=== PATIENT | female | born 1955 | race Hispanic/Latino ===

== ENCOUNTER 2016-09-17 08:25 | Inpatient (IN) | payer MEDICARE, MEDICAID ==
[2016-09-17] MEDS ORDERED: Morphine 4 mg/ml ISec IVP STA (08:51)
--- NOTE | 2016-09-17 08:52 | ED PDOC ---
Arrival/HPI - General Chief Complaint: Shortness Of Breath Time Seen by Provider: 09/17/16 08:26 Historian: Patient - History of Present Illness Narrative History of Present Illness (Text): 09/17/16 08:30 Patient is a 60 year old female whose past medical history includes Asthma, COPD , and cardiomyopathy, who presents to the emergency department complaining of sudden onset of shortness of breath since 03:00 this morning. She states she felt fine when going to bed. Patient reports associated chills and left sided chest pain worse with cough. Time/Duration: 4-6 hours Symptom Onset: Sudden Symptom Course: Unchanged Modifying Factors (Text): None Past Medical History - Provider Review Nursing Documentation Reviewed: Yes - Infectious Disease Hx of Infectious Diseases: None - Tetanus Immunization Tetanus Immunization: Unknown - Cardiac Hx Cardiac Disorders: Yes Hx Hypertension: Yes Hx Pacemaker: Yes Other/Comment: Defib - Pulmonary Hx Asthma: Yes Hx Chronic Obstructive Pulmonary Disease (COPD): Yes Hx Emphysema: Yes - Neurological Hx Neurological Disorder: Yes - HEENT Hx HEENT Disorder: No - Renal Hx Renal Disorder: No Other/Comment: nodules on kidney - Endocrine/Metabolic Hx Endocrine Disorders: Yes Other/Comment: DM "diet controlled" - Hematological/Oncological Hx Blood Disorders: No - Integumentary Hx Dermatological Disorder: Yes Other/Comment: 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 [id number] - Musculoskeletal/Rheumatological Hx Musculoskeletal Disorders: No Hx Falls: No - Gastrointestinal Hx Gastrointestinal Disorders: No - Genitourinary/Gynecological Hx Genitourinary Disorders: No - Psychiatric Hx Psychophysiologic Disorder: No Hx Substance Use: No - Surgical History Hx Gastric Bypass Surgery: Yes (sleeve) Hx Hysterectomy: Yes Hx Orthopedic Surgery: Yes (neck, knees carpal tunnel) Other/Comment: Pacemaker/Defib - Anesthesia Hx Anesthesia: Yes Hx Anesthesia Reactions: No Hx Malignant Hyperthermia: No - Suicidal Assessment Feels Threatened In Home Enviroment: No Family/Social History - Physician Review Nursing Documentation Reviewed: Yes Family/Social History: Unknown Family HX Smoking Status: Former Smoker Hx Alcohol Use: No Hx Substance Use: No Hx Substance Use Treatment: No Allergies/Home Meds Allergies/Adverse Reactions: Allergies adhesive Allergy (Mild, Verified 09/17/16 08:37) RASH latex Allergy (Mild, Verified 09/17/16 08:37) RASH levofloxacin Allergy (Mild, Verified 09/17/16 08:37) RASH Home Medications: Home Meds Medication Instructions Recorded Confirmed Acetaminophen/Oxycodone Hydr 1 tab PO Q6 MDD 10/325 tab 04/20/15 09/17/16 [Percocet 2.5/325 mg Tab] Carvedilol [Coreg] 25 mg PO .1-2 TIMES PERDAY 04/20/15 09/17/16 Zolpidem Tartrate [Zolpidem 10 mg PO HS 04/20/15 09/17/16 Tartrate] Albuterol HFA [Ventolin HFA 90 1 inh INH PRN PRN 09/17/16 09/17/16 mcg/actuation (8 g)] Aspirin [Aspirin Chewable] 81 mg PO DAILY 09/17/16 09/17/16 Calcium Carb/Vitamin D3/Vit K1 1 tab PO .1-2 TIMESPERDAY 09/17/16 09/17/16 [Calcium + D Soft Chewable Tab] Celecoxib [celeBREX] 200 mg PO DAILY 09/17/16 09/17/16 Dexlansoprazole [Dexilant] 60 mg PO DAILY 09/17/16 09/17/16 Diclofenac Sodium [Voltaren] 1 appful TOP QID 09/17/16 09/17/16 Epinephrine [Epipen] 0.3 mg IJ PRN PRN 09/17/16 09/17/16 Ergocalciferol (Vitamin D2) 50,000 units PO .ONCE PER WEEK 09/17/16 09/17/16 [Vitamin D] Folic Acid [Folic Acid] 1,000 mcg PO DAILY 09/17/16 09/17/16 Gabapentin [Neurontin] 300 mg PO .1-3TIMES/DAY 09/17/16 09/17/16 Ibuprofen [Motrin Tab] 800 mg PO .1-3TIMES PERDAY PRN 09/17/16 09/17/16 Lisinopril [Zestril] 25 mg PO DAILY 09/17/16 09/17/16 Naproxen [Naprosyn Tab] 1 tab PO .1-2 TIMES PER DAY PRN 09/17/16 09/17/16 Oxycodone HCl [Oxycontin] 15 mg PO TID 09/17/16 09/17/16 Tizanidine HCl [Tizanidine HCl] 4 mg PO HS 09/17/16 09/17/16 Review of Systems - Review of Systems Constitutional: Fatigue, Fevers, Other (Chills) Eyes: absent: Vision Changes, Photophobia ENT: absent: Hearing Changes, Tinnitus Respiratory: SOB, Cough. absent: Sputum, Wheezing Cardiovascular: Chest Pain, GOMEZ. absent: Edema, Calf Pain Gastrointestinal: absent: Abdominal Pain, Nausea, Vomiting Genitourinary Female: absent: Dysuria, Frequency, Hematuria Musculoskeletal: Back Pain. absent: Neck Pain Skin: absent: Rash, Pruritis Neurological: absent: Headache, Dizziness, Focal Weakness Endocrine: absent: Polyuria Hemo/Lymphatic: absent: Easy Bleeding Psychiatric: absent: Depression Physical Exam - Physical Exam Narrative Physical Exam (Text): Head: Atraumatic. Normocephalic. Eyes: PERRL. EOMI. Conjunctivae are not pale. ENT: Mucous membranes are moist and intact. Oropharynx is clear and symmetric. Neck: Supple. Full ROM. No JVD. No lymphadenopathy. Cardiovascular: Regular rate. Regular rhythm. Systolic murmur.. Distal pulses are 2+ and symmetric. Pulmonary/Chest: Tachypneic. Bilateral wheezing. Rhonchi left lung. Mild respiratory distress initially. Abdominal: Soft and non-distended. There is no tenderness. No rebound, guarding, or rigidity. No organomegaly. Good bowel sounds. Back: No CVA tenderness. Left sided paraspinal tenderness, no erythema or edema or midline spinal tenderness. Extremities: Bilateral lower extremity edema. No cyanosis. No clubbing. Full range of motion in all extremities. No calf tenderness. Abrasion to forearm, no pus or streaking or drainage or active bleeding. Skin: Skin is warm and dry. No petechiae. No purpura. Neurological: Alert, awake, and oriented to person, place, time, and situation. Normal speech. Motor and sensory intact. Psychiatric: Good eye contact. Normal interaction, affect, and behavior. Vital Signs Reviewed: Yes Vital Signs Temp Pulse Pulse Resp BP Pulse Ox 09/17/16 12:54 100.5 F H 90 90 20 126/58 L 09/17/16 11:00 95 H 18 99/55 L 98 09/17/16 08:45 100.5 F H 90 20 126/58 L 98 09/17/16 08:38 21 Blood Pressure: Normal Pulse: Regular Respiratory Rate: Tachypneic Appearance: Positive for: Non-Toxic, Uncomfortable Pain Distress: Moderate Mental Status: Positive for: Alert and Oriented X 3 Medical Decision Making ED Course and Treatment: Differential Diagnosis include but are not limited to: pneumonia, chf, cad, doubt PE Plan: Will obtain Chest X-ray, EKG, and give nebulizer treatments. Patient states she is allergic to steroids. Progress Notes: Patient received multiple nebulizers as well as Magnesium iv prior to arrival. On initial exam, diffuse wheezing noted with PALPABLE left sided pain on exam. Chest xray abnormal and suggestive of pneumonia. Patient with fever in ED, tylenol given. Lactate on ABG unremarkable. Chest X-ray Solar System Designer : Lauren Ordoñez MD Report Date : 09/17/2016 09:45:24 IMPRESSION: Left lingular and lower lobe pneumonia. Follow-up after medical management is recommended to ensure resolution and exclude underlying mass. 09/17/16 09:41 IV Morphine given with improvement in back pain, which I feel is secondary to a chronic back pain but also compounded by her chest xray findings. After multiple nebulizers, less tachypneic, sats 99% on 2 liters nasal cannula. Patient with low WBC. I have consulted infectious disease, iv antibiotics initiated. Currently nontoxic appearing with no meningeal signs. Abnormal labs and chest xray findings reviewed with patient as well as treatment plan. Case discussed with Dr. Miller who accepts for admission. - Lab Interpretations Lab Results: 09/17/16 09:00 09/17/16 09:00 Lab Results 09/17/16 09:00: PT 10.3, INR 0.95, APTT 21.7 L 09/17/16 09:00: WBC 1.3 L* D, RBC 4.15, Hgb 13.7, Hct 40.5, MCV 97.6, MCH 33.0, MCHC 33.8, RDW 12.7, Plt Count 169, MPV 10.1, Neutrophils % (Manual) 40 L, Band Neutrophils % 15 H*, Lymphocytes % (Manual) 42 H, Monocytes % (Manual) 3, Platelet Evaluation Normal 09/17/16 09:00: Sodium 140, Chloride 102, Potassium 3.4 L, Carbon Dioxide 27, Anion Gap 14, BUN 19, Creatinine 0.6, Est GFR ( Amer) > 60, Est GFR (Non- Af Amer) > 60, Random Glucose 93, Calcium 9.7, Magnesium 2.5 H, Total Bilirubin 1.3, AST 19, ALT 20, Alkaline Phosphatase 100, Lactate Dehydrogenase 505, Total Creatine Kinase 51, Troponin I < 0.01 D, NT-Pro-B Natriuret Pep 98.9, Total Protein 6.7, Albumin 3.9, Globulin 2.8, Albumin/Globulin Ratio 1.4 09/17/16 09:00: pCO2 24 L, pO2 63.0 L, HCO3 25.2, ABG pH 7.63 H*, ABG Total CO2 25.9, ABG O2 Saturation 96.8, ABG Base Excess 5.1 H, ABG Potassium 2.8 L, Sodium 140.0, Chloride 107.0, Glucose 96, Lactate 1.5, FiO2 21.0, Arterial Blood Potassium 2.8 L 09/17/16 08:55: Influenza Typ A,B (EIA) Negative for flu a/b 09/17/16 08:40: pO2 26 L, VBG pH 7.51 H, VBG pCO2 38.0 L, VBG HCO3 30.3 H, VBG Total CO2 31.5 H, VBG O2 Sat (Calc) 58.1, VBG Base Excess 6.9 H, VBG Potassium 3.3 L, Sodium 141.0, Chloride 103.0, Glucose 96, Lactate 2.4 H, FiO2 21.0, Venous Blood Potassium 3.3 L - RAD Interpretation Radiology Orders: 09/17/16 08:50 CHEST PORTABLE [RAD] Stat - EKG Interpretation EKG Interpretation (Text): 09/17/16 16:36 EKG at 0837 normal sinus rhythm with no acute st elevations Interpreted by ED Physician: Yes Type: 12 lead EKG - Medication Orders Current Medication Orders: Atorvastatin Calcium (Lipitor) 40 mg PO DAILY [facility] Last Admin: 09/17/16 13:16 Dose: Not Given Non-Admin Reason: Patient Refused Carvedilol (Coreg) 6.25 mg PO DAILY [facility] Last Admin: 09/17/16 13:16 Dose: 6.25 mg Dipyridamole/Aspirin (Aggrenox 25-200 Mg) 1 ea PO BID [facility] Last Admin: 09/17/16 13:16 Dose: 1 ea Doxycycline Hyclate (Doryx) 100 mg PO Q12 [facility] PRN Reason: Protocol Stop: 09/26/16 22:01 Escitalopram Oxalate (Lexapro) 10 mg PO DAILY [facility] Last Admin: 09/17/16 13:16 Dose: 10 mg Gabapentin (Neurontin) 300 mg PO TID [facility] PRN Reason: Protocol Meropenem 1g/NS 100mL IVPB (Meropenem 1g/Ns 100ml Ivpb) 1 gm in 100 mls @ 100 mls/hr IVPB Q8 [facility]ARA PRN Reason: Protocol Stop: 09/26/16 14:01 Last Admin: 09/17/16 13:16 Dose: 100 mls/hr Vancomycin HCl (Vancomycin 1gm) 1 gm in 250 mls @ 167 mls/hr IVPB Q12H [facility] PRN Reason: Protocol Stop: 09/26/16 10:46 Last Admin: 09/17/16 12:44 Dose: 167 mls/hr Levalbuterol HCl (Xopenex) 1.25 mg IH [id number] [facility] Last Admin: 09/17/16 14:20 Dose: 1.25 mg Montelukast Sodium (Singulair) 10 mg PO DAILY [facility] Last Admin: 09/17/16 13:16 Dose: 10 mg Oxycodone HCl (Oxycontin Extended Release Tab) 15 mg PO TID [facility] Stop: 09/20/16 18:01 Pregabalin (Lyrica) 100 mg PO BID [facility] Last Admin: 09/17/16 13:16 Dose: 100 mg Topiramate (Topamax) 50 mg PO BID [facility] PRN Reason: Protocol Zolpidem Tartrate (Ambien) 5 mg PO HS PRN; Protocol PRN Reason: Insomnia Discontinued Medications Acetaminophen (Tylenol 325mg Tab) 650 mg PO ONCE STA Stop: 09/17/16 08:53 Last Admin: 09/17/16 09:03 Dose: 650 mg Re-Assess: MAR Pain/Vitals Document 09/17/16 10:03 HD (Rec: 09/17/16 11:44 HD [id number]) Pain Reassessment Is This A Pain ReAssessment? Yes Sleep Is patient sleeping during reassessment? No Presence of Pain Presence of Pain No Albuterol/Ipratropium (Duoneb 3 Mg/0.5 Mg (3 Ml) Ud) 3 ml IH Q15M [facility] Stop: 09/17/16 09:31 Last Admin: 09/17/16 09:41 Dose: Not Given Non-Admin Reason: Patient Refused Ceftriaxone Sodium (Rocephin 1 Gram Ivpb) 1 gm in 100 mls @ 200 mls/hr IVPB ONCE STA PRN Reason: Protocol Stop: 09/17/16 09:46 Last Admin: 09/17/16 09:41 Dose: 200 mls/hr Morphine Sulfate (Morphine) 4 mg IVP STAT STA Stop: 09/17/16 08:52 Last Admin: 09/17/16 09:03 Dose: 4 mg Re-Assess: MARLON Pain Assessment Document 09/17/16 10:03 HD (Rec: 09/17/16 11:44 HD [id number]) Pain Reassessment Is this a pain reassessment? Yes Sleep Is patient sleeping during reassessment? No Presence of Pain Presence of Pain No Pneumococcal Polyvalent Vaccine (Pneumovax 23 Vaccine) 0.5 ml IM .ONCE ONE Stop: 09/17/16 13:42 Last Admin: 09/17/16 13:44 Dose: - Scribe Statement The provider has reviewed the documentation as recorded by the Renetta Cabrera Provider Scribe Attestation: All medical record entries made by the Renetta were at my direction and personally dictated by me. I have reviewed the chart and agree that the record accurately reflects my personal performance of the history, physical exam, medical decision making, and the department course for this patient. I have also personally directed, reviewed, and agree with the discharge instructions and disposition. Disposition/Present on Arrival - Present on Arrival Any Indicators Present on Arrival: No History of DVT/PE: No History of Uncontrolled Diabetes: No Urinary Catheter: No History of Decub. Ulcer: No History Surgical Site Infection Following: None - Disposition Have Diagnosis and Disposition been Completed?: Yes Diagnosis: Pneumonia, Dyspnea, Leukopenia Disposition: HOSPITALIZED Disposition Time: 10:00 Patient Plan: Admission, Telemetry Condition: SERIOUS
[2016-09-17] MEDS: Albuterol-Ipratrop 3 mg / 0.5 (3 ml) UD IH SCH ×3 (09:03→09:41)
[2016-09-17 09:14] LABS: ARTERIAL BLOOD GAS HCO3 25.2 mmol/L (21-28)
[2016-09-17] MEDS ORDERED: cefTRIAXone 1 gm 1 GM/100 ML BAG IVPB STA (09:17)
[2016-09-17] MEDS ORDERED: Azithromycin 500MG/NS 250ml 500 MG/250 ML BAG IVPB STA (09:17)
[2016-09-17 09:18] LABS: ARTERIAL BLOOD GAS PH 7.63 (7.35-7.45)
[2016-09-17 09:25] LABS: HEMATOCRIT 40.5 % (36.0-48.0); MEAN CELL VOLUME 97.6 fL (80.0-105.0); MEAN CORPUSCULAR HGB CONC 33.8 g/dl (31.0-37.0); MEAN PLATELET VOLUME 10.1 fl (7.0-11.0); PLATELET COUNT 169 10^3/uL (120.0-450.0); RED CELL DISTRIBUTION WIDTH 12.7 % (11.5-14.5)
[2016-09-17 09:26] LABS: ADD MANUAL DIFF? YES
[2016-09-17 09:28] LABS: WHITE BLOOD COUNT 1.3 10^3/ul (4.5-11.0)
[2016-09-17 09:29] LABS: VENOUS BLOOD GAS BASE EXCESS 6.9 mmol/L (0.0-2.0); VENOUS BLOOD PH 7.51 (7.32-7.43)
[2016-09-17 09:34] LABS: ALB/GLOB RATIO 1.4 (1.1-1.8); ALKALINE PHOSPHATASE 100 U/L (38-133); ALT/SGPT 20 U/L (7-56); AST/SGOT 19 U/L (15-39); BILIRUBIN,TOTAL 1.3 mg/dL (0.2-1.3); BLOOD UREA NITROGEN 19 mg/dL (7-21); CALCIUM 9.7 mg/dL (8.4-10.5); CARBON DIOXIDE 27 mmol/L (21-33); CHLORIDE 102 mmol/L (98-107); GFR AFRICAN-AMERICAN > 60; GLUCOSE,RANDOM 93 mg/dL (70-110); INR 0.95 (0.93-1.08); MAGNESIUM 2.5 mg/dL (1.7-2.2); PARTIAL THROMBOPLASTIN TIME 21.7 Seconds (23.7-30.8); POTASSIUM 3.4 mmol/L (3.6-5.0); SODIUM 140 mmol/L (132-148); TOTAL PROTEIN 6.7 g/dL (5.8-8.3)
--- NOTE | 2016-09-17 09:47 | RAD ---
HISTORY: Shortness of breath COMPARISON: 08/28/2015. FINDINGS: LUNGS: There is consolidation in the lingula and left lower lobe. The right lung is clear. PLEURA: Suspect small left pleural effusion. No significant right pleural effusion identified, no pneumothorax apparent. CARDIOVASCULAR: Normal. There is stable position of a left-sided transvenous permanent pacing device. OSSEOUS STRUCTURES: No significant abnormalities. VISUALIZED UPPER ABDOMEN: Normal. OTHER FINDINGS: None. IMPRESSION: Left lingular and lower lobe pneumonia. Follow-up after medical management is recommended to ensure resolution and exclude underlying mass.
--- NOTE | 2016-09-17 09:49 | CARD ---
APPROVED REPORT EKG Measurement Heart [id number] <Conclusion> Sinus rhythm with fusion complexes Otherwise normal ECG
[2016-09-17 09:58] LABS: TROPONIN I < 0.01 ng/mL
[2016-09-17 10:02] LABS: BAND 15 % (0-2); NEUTROPHIL 40 % (50.0-70.0); PLATELET ESTIMATE NORMAL (NORMAL)
[2016-09-17 11:41] LABS: URINE BILIRUBIN NEGATIVE (NEGATIVE); URINE BLOOD NEGATIVE (NEGATIVE); URINE GLUCOSE (UA) NEGATIVE (NEGATIVE); URINE KETONE NEGATIVE (NEGATIVE); URINE LEUKOCYTE ESTERASE SMALL Leu/uL (NEGATIVE); URINE PROTEIN NEGATIVE mg/dL (<30 mg/dL)
[2016-09-17 11:45] LABS: URINE APPEARANCE TURBID (CLEAR); URINE COLOR YELLOW (YELLOW)
[2016-09-17 11:47] LABS: URINE BACTERIA MANY (NEG); URINE RBC NEGATIVE /hpf (0-2)
[2016-09-17] MEDS: Vancomycin 1gm in NS 250ml 1 GM/250 ML BAG IVPB SCH ×2 (12:44→23:43)
[2016-09-17] MEDS: Aspirin-Dipyridamole 200-25 mg ER Cap PO SCH ×2 (13:16→17:04)
[2016-09-17] MEDS: Meropenem 1g/NS 100mL IVPB 1 GM/100 ML PIGGYBACK IVPB SCH ×2 (13:16→22:40)
[2016-09-17 13:41] VITALS: BMI 22.4
[2016-09-17] MEDS ORDERED: Pneumococcal 23-Valent Vaccine IM ONE (13:41)
[2016-09-17] MEDS: Levalbuterol 1.25 MG/3 ML Inhal Soln UD IH SCH ×2 (14:20→19:57)
[2016-09-17] MEDS: oxyCODONE 15 mg Immediate Release Tab PO PRN (20:04)
--- NOTE | 2016-09-17 20:44 | CP.PCM.CON ---
History of Present Illness - History of Present Illness History of Present Illness: COPD DJD CMP CHF DM PER NEUROPATHY Review of Systems - Review of Systems Systems not reviewed;Unavailable: Acuity of Condition, Unstable Vital Signs, Respiratory Distress, Dementia, Altered Mental Status, Intoxicated, Uncooperative, Psychotic, Intubated, Language Barrier, Other - Constitutional Constitutional: As Per HPI, Anorexia, Chills, Daytime Sleepiness, Excessive Sweating, Fatigue, Fever, Frequent Falls, Headache, Increased Appetite, Lethargy , Malaise, Night Sweats, Snoring, Sleep Apnea, Weight Gain, Weight Loss, Weakness, Other - EENT Ears: absent: As Per HPI, Decreased Hearing, Ear Discharge, Ear Pain, Tinnitus, Abnormal Hearing, Disequilibrium, Dizziness, Other Nose/Mouth/Throat: absent: As Per HPI, Epistaxis, Nasal Congestion, Nasal Discharge, Nasal Obstruction, Nasal Trauma, Nose Pain, Post Nasal Drip, Sinus Pain, Sinus Pressure, Bleeding Gums, Change in Voice, Dental Pain, Dry Mouth, Dysphagia, Halitosis, Hoarsness, Lip Swelling, Mouth Lesions, Mouth Pain, Odynophagia, Sore Throat, Throat Swelling, Tongue Swelling, Facial Pain, Neck Pain, Neck Mass, Other - Breasts Breasts: As Per HPI, Change in Shape, Mass, Pain, Nipple Discharge, Nipple Inversion, Skin Changes, Swelling, Other - Cardiovascular Cardiovascular: absent: As Per HPI, Acrocyanosis, Chest Pain, Chest Pain at Rest , Chest Pain with Activity, Claudication, Diaphoresis, Dyspnea, Dyspnea on Exertion, Edema, Irregular Heart Rhythm, Pain Radiating to Arm/Neck/Jaw, Leg Edema, Leg Ulcers, Lightheadedness, Orthopnea, Palpitations, Paroxysmal Nocturnal Dyspnea, Pedal Edema, Radiating Pain, Rapid Heart Rate, Slow Heart Rate, Syncope, Other Past Patient History - Infectious Disease Hx of Infectious Diseases: None - Tetanus Immunizations Tetanus Immunization: Unknown - Past Medical History & Family History Past Medical History?: Yes - Past Social History Smoking Status: Former Smoker - CARDIAC Hx Cardiac Disorders: Yes Hx Hypertension: Yes Hx Pacemaker: Yes Other/Comment: Defib - PULMONARY Hx Asthma: Yes Hx Chronic Obstructive Pulmonary Disease (COPD): Yes Hx Emphysema: Yes - NEUROLOGICAL Hx Neurological Disorder: Yes - HEENT Hx HEENT Problems: No - RENAL Hx Chronic Kidney Disease: No Other/Comment: nodules on kidney - ENDOCRINE/METABOLIC Hx Endocrine Disorders: Yes Other/Comment: DM "diet controlled" - HEMATOLOGICAL/ONCOLOGICAL Hx Blood Disorders: No - INTEGUMENTARY Hx Dermatological Problems: Yes Other/Comment: 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 [id number] - MUSCULOSKELETAL/RHEUMATOLOGICAL Hx Musculoskeletal Disorders: No Hx Falls: No - GASTROINTESTINAL Hx Gastrointestinal Disorders: No - GENITOURINARY/GYNECOLOGICAL Hx Genitourinary Disorders: No - PSYCHIATRIC Hx Psychophysiologic Disorder: No Hx Substance Use: No - SURGICAL HISTORY Hx Gastric Bypass Surgery: Yes (sleeve) Hx Hysterectomy: Yes Hx Orthopedic Surgery: Yes (neck, knees carpal tunnel) Other/Comment: Pacemaker/Defib - ANESTHESIA Hx Anesthesia: Yes Hx Anesthesia Reactions: No Hx Malignant Hyperthermia: No Meds Allergies/Adverse Reactions: Allergies Allergy/AdvReac Type Severity Reaction Status Date / Time adhesive Allergy Mild RASH Verified 09/17/16 08:37 latex Allergy Mild RASH Verified 09/17/16 08:37 levofloxacin Allergy Mild RASH Verified 09/17/16 08:37 - Medications Medications: Current Medications Atorvastatin Calcium (Lipitor) 40 mg PO DAILY [facility] Last Admin: 09/17/16 13:16 Dose: Not Given Carvedilol (Coreg) 6.25 mg PO DAILY [facility] Last Admin: 09/17/16 13:16 Dose: 6.25 mg Dipyridamole/Aspirin (Aggrenox 25-200 Mg) 1 ea PO BID [facility] Last Admin: 09/17/16 17:04 Dose: Not Given Doxycycline Hyclate (Doryx) 100 mg PO Q12 [facility] PRN Reason: Protocol Stop: 09/26/16 22:01 Escitalopram Oxalate (Lexapro) 10 mg PO DAILY [facility] Last Admin: 09/17/16 13:16 Dose: 10 mg Gabapentin (Neurontin) 300 mg PO TID [facility] PRN Reason: Protocol Last Admin: 09/17/16 17:04 Dose: 300 mg Meropenem 1g/NS 100mL IVPB (Meropenem 1g/Ns 100ml Ivpb) 1 gm in 100 mls @ 100 mls/hr IVPB Q8 [facility] PRN Reason: Protocol Stop: 09/26/16 14:01 Last Admin: 09/17/16 13:16 Dose: 100 mls/hr Vancomycin HCl (Vancomycin 1gm) 1 gm in 250 mls @ 167 mls/hr IVPB Q12H [facility] PRN Reason: Protocol Stop: 09/26/16 10:46 Last Admin: 09/17/16 12:44 Dose: 167 mls/hr Levalbuterol HCl (Xopenex) 1.25 mg IH [id number] [facility] Last Admin: 09/17/16 19:57 Dose: Not Given Montelukast Sodium (Singulair) 10 mg PO DAILY [facility] Last Admin: 09/17/16 13:16 Dose: 10 mg Oxycodone HCl (Oxycodone Immediate Release Tab) 15 mg PO Q6 PRN PRN Reason: Pain, severe (8-10) Last Admin: 09/17/16 20:04 Dose: 15 mg Oxycodone HCl (Oxycontin Extended Release Tab) 20 mg PO Q12 [facility] Pregabalin (Lyrica) 100 mg PO BID [facility] Last Admin: 09/17/16 17:04 Dose: Not Given Topiramate (Topamax) 50 mg PO BID [facility] PRN Reason: Protocol Last Admin: 09/17/16 17:06 Dose: Not Given Zolpidem Tartrate (Ambien) 5 mg PO HS PRN; Protocol PRN Reason: Insomnia Physical Exam - Constitutional Appears: Well - Head Exam Head Exam: ATRAUMATIC, NORMAL INSPECTION, NORMOCEPHALIC - Eye Exam Eye Exam: EOMI, Normal appearance, PERRL Pupil Exam: NORMAL ACCOMODATION, PERRL - ENT Exam ENT Exam: Mucous Membranes Moist, Normal Exam - Neck Exam Neck exam: Positive for: Normal Inspection - Respiratory Exam Respiratory Exam: Clear to Auscultation Bilateral, NORMAL BREATHING PATTERN - Cardiovascular Exam Cardiovascular Exam: REGULAR RHYTHM - GI/Abdominal Exam GI & Abdominal Exam: Normal Bowel Sounds, Soft. absent: Tenderness - Rectal Exam Rectal Exam: NORMAL INSPECTION - Exam Exam: Circumcision, NORMAL INSPECTION External exam: NORMAL EXTERNAL EXAM Speculum exam: NORMAL SPECULUM EXAM Bimanual exam: NORMAL BIMANUAL EXAM - Extremities Exam Extremities exam: Positive for: normal inspection - Back Exam Back exam: NORMAL INSPECTION - Neurological Exam Neurological exam: Alert, CN II-XII Intact, Normal Gait, Oriented x3, Reflexes Normal - Psychiatric Exam Psychiatric exam: Normal Affect, Normal Mood - Skin Skin Exam: Dry, Intact, Normal Color, Warm Results - Vital Signs Recent Vital Signs: Last Vital Signs Temp 98.4 F 09/17/16 18:00 Pulse 82 09/17/16 18:00 Resp 20 09/17/16 18:00 BP 109/54 L 09/17/16 18:00 Pulse Ox 98 09/17/16 11:00 - Labs Result Diagrams: 09/17/16 09:00 09/17/16 09:00 Labs: Laboratory Results - last 24 hr 09/17/16 11:20 Urine Color Yellow Urine Appearance Turbid Urine pH 7.0 Ur Specific [place] 1.020 Urine Protein Negative Urine Glucose (UA) Negative Urine Ketones Negative Urine Blood Negative Urine Nitrate Positive H Urine Bilirubin Negative Urine Urobilinogen 1.0 H Ur Leukocyte Esterase Small H Urine RBC Negative Urine WBC 5 - 10 Ur Epithelial Cells 3 - 4 Urine Bacteria Many Assessment & Plan - Assessment and Plan (Free Text) Assessment: SEPSIS LLL PNUMONIA BANDEMIA Plan: VANCO /MERR PENDING LARA CULTURES AND WORK UP - Date & Time Date: 09/17/16 Time: 10:30
[2016-09-17] MEDS: oxyCODONE 20 mg ER Tab (oxyCONTIN) PO SCH (22:40)
--- NOTE | 2016-09-17 23:36 | CARD ---
APPROVED REPORT EXAM: Two-dimensional and M-mode echocardiogram with Doppler and color Doppler. INDICATION Chest Pain 2D DIMENSIONS Left Atrium (2D)4.5 (1.6-4.0cm)IVSd0.9 (0.7-1.1cm) LVDd5.2 (3.9-5.9cm)PWd1.1 (0.7-1.1cm) M-Mode DIMENSIONS Aortic Root3.20 (2.2-3.7cm)Aortic Cusp Exc.1.90 (1.5-2.0cm) Aortic Valve AoV Peak Aaryaweo710.0cm/sAoV VTI29.0cmAO Peak GR.7mmHg AO Mean GR.5mmHg Mitral Valve MV E Ggvqvixm14.3cm/sMV A Hsvstvwx65.7cm/sE/A ratio0.8 TDI Lateral E' Peak V7.41cm/sMedial E' Peak V6.24cm/sE/Lateral E'9.5 E/Medial E'11.3 Pulmonary Valve PV Peak Zatpbvmu79.6cm/sPV Peak Grad.3mmHg Tricuspid Valve TR Peak Cqvnwcad178pd/sRAP PRLVGAUX73qbIwKI Peak Gr.22mmHg [id number] LEFT VENTRICLE The left ventricle is normal size. There is normal left ventricular wall thickness. The systolic function is mildly to moderately impaired.EF-30-35% There is global hypokinesis of the left ventricle. Transmitral Doppler flow pattern is Grade III-reversible restrictive diastolic dysfunction. No left ventricle thrombus noted on this study. There is no ventricular septal defect visualized. There is no left ventricular aneurysm. There is no mass noted in the left ventricle. RIGHT VENTRICLE The right ventricle is borderline dilated. There is normal right ventricular wall thickness. Systolic function is mildly reduced. There is a pacemaker lead in the right ventricle. ATRIA The left atrium is moderately dilated. The right atrium is mildly dilated. There is a catheter/pacemaker lead seen in the right atrium. The atrial septum is aneurysmal. AORTIC VALVE The aortic valve is thickened but opens well. There is trace aortic regurgitation. There is no aortic valvular stenosis. There is no aortic valvular vegetation. MITRAL VALVE The mitral valve is thickened but opens well. Mitral regurgitation is mild to moderate. There is no mitral valve stenosis. There is no evidence of mitral valve prolapse. TRICUSPID VALVE The tricuspid valve leaflets are thickened , but open well. There is mild tricuspid regurgitation.RVSP-32 mmof hg. There is no tricuspid valve stenosis. There is no tricuspid valve prolapse or vegetation. PULMONIC VALVE The pulmonary valve is normal in structure. There is trace pulmonic valvular regurgitation. There is no pulmonic valvular stenosis. GREAT VESSELS The aortic root is normal in size. The ascending aorta is normal in size. The pulmonary artery is normal. The IVC is normal in size and collapses >50% with inspiration. PERICARDIAL EFFUSION There is no pleural effusion. Trivial PE <Conclusion> The left ventricle is normal size. There is normal left ventricular wall thickness. The systolic function is mildly to moderately impaired.EF-30-35% There is trace aortic regurgitation. Mitral regurgitation is mild to moderate. There is mild tricuspid regurgitation.RVSP-32 mmof hg. Trivial PE The IVC is normal in size and collapses >50% with inspiration. No vegetation or thrombus noted.
[2016-09-18] MEDS: Levalbuterol 1.25 MG/3 ML Inhal Soln UD IH SCH ×4 (01:25→19:56)
[2016-09-18] MEDS: Meropenem 1g/NS 100mL IVPB 1 GM/100 ML PIGGYBACK IVPB SCH ×3 (05:50→21:22)
[2016-09-18] MEDS: oxyCODONE 15 mg Immediate Release Tab PO PRN ×2 (05:50→14:00)
[2016-09-18 07:15] LABS: ADD MANUAL DIFF? NO
[2016-09-18 07:27] LABS: BASO # 0.01 K/mm3 (0.0-2.0); BASO % 0.1 % (0.0-3.0); EOS % 0.2 % (1.5-5.0); GRAN # 7.27 (1.4-6.5); GRAN % 82.3 % (50.0-68.0); HEMATOCRIT 31.4 % (36.0-48.0); LYMPH # 1.1 (1.2-3.4); LYMPH % 12.4 % (22.0-35.0); MEAN CELL VOLUME 98.4 fL (80.0-105.0); MEAN CORPUSCULAR HEMOGLOBIN 32.3 pg (25.0-35.0); MEAN CORPUSCULAR HGB CONC 32.8 g/dl (31.0-37.0); MEAN PLATELET VOLUME 10.3 fl (7.0-11.0); MONO # 0.4 (0.1-0.6); PLATELET COUNT 149 10^3/uL (120.0-450.0); RED CELL DISTRIBUTION WIDTH 12.9 % (11.5-14.5); WHITE BLOOD COUNT 8.8 10^3/ul (4.5-11.0)
[2016-09-18 07:32] LABS: ALB/GLOB RATIO 1.1 (1.1-1.8); ALKALINE PHOSPHATASE 67 U/L (38-133); ALT/SGPT 21 U/L (7-56); AST/SGOT 16 U/L (15-39); BILIRUBIN,TOTAL 0.5 mg/dL (0.2-1.3); BLOOD UREA NITROGEN 22 mg/dL (7-21); CALCIUM 8.6 mg/dL (8.4-10.5); CARBON DIOXIDE 29 mmol/L (21-33); CHLORIDE 104 mmol/L (98-107); CHOLESTEROL 133 mg/dL (130-200); GFR AFRICAN-AMERICAN > 60; GLUCOSE,RANDOM 93 mg/dL (70-110); MAGNESIUM 1.8 mg/dL (1.7-2.2); PHOSPHOROUS 2.9 mg/dL (2.5-4.5); POTASSIUM 3.5 mmol/L (3.6-5.0); SODIUM 137 mmol/L (132-148); TOTAL PROTEIN 5.5 g/dL (5.8-8.3)
[2016-09-18] MEDS ORDERED: Potassium Chloride 20 mEq ER Tab PO ONE (09:49)
[2016-09-18] MEDS: oxyCODONE 20 mg ER Tab (oxyCONTIN) PO SCH ×2 (10:31→21:22)
[2016-09-18] MEDS: Aspirin-Dipyridamole 200-25 mg ER Cap PO SCH ×2 (10:39→17:41)
--- NOTE | 2016-09-18 12:27 | CT ---
PROCEDURE: CT Chest without contrast HISTORY: r/o mass, PNA LLL COMPARISON: None. TECHNIQUE: Contiguous axial images were obtained through the chest without intravenous contrast enhancement. Sagittal and coronal reconstructions were performed. Radiation dose (DLP): 383 mGy-cm. This CT exam was performed using one or more of the following dose reduction techniques: Automated exposure control, adjustment of the mA and/or kV according to patient size, and/or use of iterative reconstruction technique. FINDINGS: LUNGS: There is patchy consolidation in the left lower lobe consistent with pneumonia. There is no evidence of a discrete mass. Minimal patchy infiltrates are seen in the left upper lobe. MEDIASTINUM: Unremarkable thoracic aorta. No aneurysm. Normal sized heart. Main pulmonary artery unremarkable. No vascular congestion. No lymphadenopathy. PLEURA: No pleural fluid. No pneumothorax. BONES: No fracture. No destructive lesion. UPPER ABDOMEN: Grossly unremarkable. OTHER FINDINGS: Dual lead pacemaker IMPRESSION: Left lower lobe pneumonia
[2016-09-18] MEDS: Vancomycin 1gm in NS 250ml 1 GM/250 ML BAG IVPB SCH ×2 (13:53→22:25)
--- NOTE | 2016-09-18 21:19 | CP.PCM.PN ---
Subjective - Date & Time of Evaluation Date of Evaluation: 09/18/16 Time of Evaluation: 08:00 - Subjective Subjective: DOING BETTER STILL WITH CHEST PAIN UPON INSPIRATION Objective - Vital Signs/Intake and Output Vital Signs (last 24 hours): Temp Pulse Resp BP Pulse Ox 98 F 74 26 H 125/88 95 09/18/16 16:00 09/18/16 16:00 09/18/16 16:00 09/18/16 16:00 09/18/16 16:00 - Medications Medications: Current Medications Calcium Acetate (Phoslo) 667 mg PO WM [facility] Carvedilol (Coreg) 6.25 mg PO DAILY [facility] Last Admin: 09/18/16 10:30 Dose: 6.25 mg Cholecalciferol (Vitamin D) 2,000 iu PO DAILY [facility] Doxycycline Hyclate (Doryx) 100 mg PO Q12 [facility] PRN Reason: Protocol Stop: 09/26/16 22:01 Last Admin: 09/18/16 10:32 Dose: 100 mg Escitalopram Oxalate (Lexapro) 10 mg PO DAILY [facility] Last Admin: 09/18/16 10:31 Dose: 10 mg Furosemide (Lasix) 40 mg PO DAILY [facility] Last Admin: 09/18/16 10:32 Dose: 40 mg Gabapentin (Neurontin) 300 mg PO TID [facility] PRN Reason: Protocol Last Admin: 09/18/16 17:41 Dose: 300 mg Meropenem 1g/NS 100mL IVPB (Meropenem 1g/Ns 100ml Ivpb) 1 gm in 100 mls @ 100 mls/hr IVPB Q8 [facility] PRN Reason: Protocol Stop: 09/26/16 14:01 Last Admin: 09/18/16 14:10 Dose: 100 mls/hr Vancomycin HCl (Vancomycin 1gm) 1 gm in 250 mls @ 167 mls/hr IVPB Q12H [facility] PRN Reason: Protocol Stop: 09/26/16 10:46 Last Admin: 09/18/16 13:53 Dose: 167 mls/hr Levalbuterol HCl (Xopenex) 1.25 mg IH [id number] [facility] Last Admin: 09/18/16 19:56 Dose: 1.25 mg Montelukast Sodium (Singulair) 10 mg PO DAILY [facility] Last Admin: 09/18/16 10:31 Dose: 10 mg Oxycodone HCl (Oxycodone Immediate Release Tab) 15 mg PO Q6 PRN PRN Reason: Pain, severe (8-10) Last Admin: 09/18/16 14:00 Dose: 15 mg Oxycodone HCl (Oxycontin Extended Release Tab) 20 mg PO Q12 [facility] Last Admin: 09/18/16 10:31 Dose: 20 mg Pantoprazole Sodium (Protonix Ec Tab) 40 mg PO 0600,1600 [facility] Ramipril (Altace) 1.25 mg PO DAILY [facility] Last Admin: 09/18/16 10:40 Dose: Not Given Spironolactone (Aldactone) 25 mg PO DAILY [facility] Last Admin: 09/18/16 10:40 Dose: Not Given Zolpidem Tartrate (Ambien) 5 mg PO HS PRN; Protocol PRN Reason: Insomnia Last Admin: 09/17/16 22:50 Dose: 5 mg - Labs Labs: 09/18/16 07:00 09/18/16 07:00 PT 10.3 Seconds (9.9-11.8) 09/17/16 09:00 INR 0.95 (0.93-1.08) 09/17/16 09:00 APTT 21.7 Seconds (23.7-30.8) L 09/17/16 09:00 - Constitutional Appears: Well - Head Exam Head Exam: ATRAUMATIC, NORMAL INSPECTION, NORMOCEPHALIC - Eye Exam Eye Exam: EOMI, Normal appearance, PERRL Pupil Exam: NORMAL ACCOMODATION, PERRL - ENT Exam ENT Exam: Mucous Membranes Moist, Normal Exam - Neck Exam Neck Exam: Full ROM, Normal Inspection. absent: Lymphadenopathy - Respiratory Exam Respiratory Exam: Clear to Ausculation Bilateral, NORMAL BREATHING PATTERN - Cardiovascular Exam Cardiovascular Exam: REGULAR RHYTHM, +S1, +S2. absent: Murmur - GI/Abdominal Exam GI & Abdominal Exam: Soft, Normal Bowel Sounds. absent: Tenderness - Rectal Exam Rectal Exam: NORMAL INSPECTION - Exam Exam: Circumcision, NORMAL INSPECTION External exam: NORMAL EXTERNAL EXAM Speculum exam: NORMAL SPECULUM EXAM Bimanual exam: NORMAL BIMANUAL EXAM - Extremities Exam Extremities Exam: Full ROM, Normal Capillary Refill, Normal Inspection. absent : Joint Swelling, Pedal Edema - Back Exam Back Exam: NORMAL INSPECTION - Neurological Exam Neurological Exam: Alert, Awake, CN II-XII Intact, Normal Gait, Oriented x3 - Psychiatric Exam Psychiatric exam: Normal Affect, Normal Mood - Skin Skin Exam: Dry, Intact, Normal Color, Warm Assessment and Plan (1) Sepsis Status: Acute (2) Left lower lobe pneumonia Status: Acute (3) Left lower lobe pneumonia Status: Acute (4) Bandemia Status: Acute - Assessment and Plan (Free Text) Plan: PRESENT ABX
[2016-09-19] MEDS: Levalbuterol 1.25 MG/3 ML Inhal Soln UD IH SCH ×4 (01:45→19:12)
[2016-09-19] MEDS: Meropenem 1g/NS 100mL IVPB 1 GM/100 ML PIGGYBACK IVPB SCH ×2 (05:10→14:29)
[2016-09-19] MEDS ORDERED: Pantoprazole 40 mg EC Tab PO SCH (06:00)
[2016-09-19 07:19] LABS: ADD MANUAL DIFF? NO
[2016-09-19 07:22] LABS: BASO # 0.01 K/mm3 (0.0-2.0); BASO % 0.1 % (0.0-3.0); EOS # 0.1 (0.0-0.7); EOS % 0.9 % (1.5-5.0); GRAN # 6.02 (1.4-6.5); GRAN % 79.4 % (50.0-68.0); HEMATOCRIT 30.4 % (36.0-48.0); LYMPH # 1.2 (1.2-3.4); LYMPH % 15.2 % (22.0-35.0); MEAN CELL VOLUME 98.1 fL (80.0-105.0); MEAN CORPUSCULAR HEMOGLOBIN 31.9 pg (25.0-35.0); MEAN CORPUSCULAR HGB CONC 32.6 g/dl (31.0-37.0); MEAN PLATELET VOLUME 9.7 fl (7.0-11.0); MONO # 0.3 (0.1-0.6); MONO % 4.4 % (1.0-6.0); PLATELET COUNT 144 10^3/uL (120.0-450.0); RED CELL DISTRIBUTION WIDTH 12.9 % (11.5-14.5); WHITE BLOOD COUNT 7.6 10^3/ul (4.5-11.0)
[2016-09-19 07:40] LABS: ALB/GLOB RATIO 1.1 (1.1-1.8); ALKALINE PHOSPHATASE 74 U/L (38-133); ALT/SGPT 22 U/L (7-56); AST/SGOT 21 U/L (15-39); BILIRUBIN,TOTAL 0.5 mg/dL (0.2-1.3); BLOOD UREA NITROGEN 17 mg/dL (7-21); CALCIUM 8.7 mg/dL (8.4-10.5); CARBON DIOXIDE 31 mmol/L (21-33); CHLORIDE 102 mmol/L (95-110); GFR AFRICAN-AMERICAN > 60; GLUCOSE,RANDOM 90 mg/dL (70-110); POTASSIUM 3.7 mmol/L (3.6-5.0); SODIUM 136 mmol/L (132-148); TOTAL PROTEIN 5.6 g/dL (5.8-8.3)
--- NOTE | 2016-09-19 10:11 | CP.PCM.PN ---
Subjective - Date & Time of Evaluation Date of Evaluation: 09/19/16 Time of Evaluation: 09:30 - Subjective Subjective: Feels better, no chest pain, but feels chest pain on coughing or deep pressing of left william of Chest Objective - Vital Signs/Intake and Output Vital Signs (last 24 hours): Temp Pulse Resp BP Pulse Ox 98.9 F 76 20 119/61 93 L 09/19/16 08:15 09/19/16 08:15 09/19/16 08:15 09/19/16 08:15 09/19/16 08:15 Intake and Output: 09/19/16 09/19/16 06:59 18:59 Intake Total 500 Balance 500 - Medications Medications: Current Medications Calcium Acetate (Phoslo) 667 mg PO WM [facility] Carvedilol (Coreg) 6.25 mg PO DAILY [facility] Last Admin: 09/18/16 10:30 Dose: 6.25 mg Cholecalciferol (Vitamin D) 2,000 iu PO DAILY [facility] Doxycycline Hyclate (Doryx) 100 mg PO Q12 [facility] PRN Reason: Protocol Stop: 09/26/16 22:01 Last Admin: 09/18/16 21:22 Dose: 100 mg Escitalopram Oxalate (Lexapro) 10 mg PO DAILY [facility] Last Admin: 09/18/16 10:31 Dose: 10 mg Furosemide (Lasix) 40 mg PO DAILY [facility] Last Admin: 09/18/16 10:32 Dose: 40 mg Gabapentin (Neurontin) 300 mg PO TID [facility] PRN Reason: Protocol Last Admin: 09/18/16 17:41 Dose: 300 mg Meropenem 1g/NS 100mL IVPB (Meropenem 1g/Ns 100ml Ivpb) 1 gm in 100 mls @ 100 mls/hr IVPB Q8 [facility] PRN Reason: Protocol Stop: 09/26/16 14:01 Last Admin: 09/19/16 05:10 Dose: 100 mls/hr Vancomycin HCl (Vancomycin 1gm) 1 gm in 250 mls @ 167 mls/hr IVPB Q12H [facility] PRN Reason: Protocol Stop: 09/26/16 10:46 Last Admin: 09/18/16 22:25 Dose: 167 mls/hr Levalbuterol HCl (Xopenex) 1.25 mg IH [id number] [facility] Last Admin: 09/19/16 07:55 Dose: 1.25 mg Montelukast Sodium (Singulair) 10 mg PO DAILY [facility] Last Admin: 09/18/16 10:31 Dose: 10 mg Oxycodone HCl (Oxycodone Immediate Release Tab) 15 mg PO Q6 PRN PRN Reason: Pain, severe (8-10) Last Admin: 09/18/16 14:00 Dose: 15 mg Oxycodone HCl (Oxycontin Extended Release Tab) 20 mg PO Q12 [facility] Last Admin: 09/18/16 21:22 Dose: 20 mg Pantoprazole Sodium (Protonix Ec Tab) 40 mg PO 0600,1600 [facility] Last Admin: 09/19/16 05:10 Dose: 40 mg Ramipril (Altace) 1.25 mg PO DAILY [facility] Last Admin: 09/18/16 10:40 Dose: Not Given Spironolactone (Aldactone) 25 mg PO DAILY [facility] Last Admin: 09/18/16 10:40 Dose: Not Given Zolpidem Tartrate (Ambien) 5 mg PO HS PRN; Protocol PRN Reason: Insomnia Last Admin: 09/18/16 22:25 Dose: 5 mg - Labs Labs: 09/19/16 06:40 09/19/16 06:40 PT 10.3 Seconds (9.9-11.8) 09/17/16 09:00 INR 0.95 (0.93-1.08) 09/17/16 09:00 APTT 21.7 Seconds (23.7-30.8) L 09/17/16 09:00 Assessment and Plan - Assessment and Plan (Free Text) Assessment: acute pneumonia Sepsis overwhelming leading to Neutropenia .. 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 20 years. S/p gen changed in 04/[address] Cuba markham Hx of cardiac cath ,,, Non obst CAD. MR/TR/ Plan: Continue antibx KRISTOPHER/ Coreg upon Dc home pt is scheduled for Stress Test with Her [employer] highway inspector helena dr. Silva's office.
[2016-09-19] MEDS: oxyCODONE 20 mg ER Tab (oxyCONTIN) PO SCH ×2 (10:45→22:39)
[2016-09-19] MEDS: Vancomycin 1gm in NS 250ml 1 GM/250 ML BAG IVPB SCH (10:55)
--- NOTE | 2016-09-19 11:24 | CP.PCM.PN ---
Subjective - Date & Time of Evaluation Date of Evaluation: 09/19/16 Time of Evaluation: 11:14 - Subjective Subjective: MILD SOB,GENERALISED WEAKNESS Objective - Vital Signs/Intake and Output Vital Signs (last 24 hours): Temp Pulse Resp BP Pulse Ox 98.9 F 76 20 119/61 93 L 09/19/16 08:15 09/19/16 08:15 09/19/16 08:15 09/19/16 08:15 09/19/16 08:15 Intake and Output: 09/19/16 09/19/16 06:59 18:59 Intake Total 500 Balance 500 - Medications Medications: Current Medications Calcium Acetate (Phoslo) 667 mg PO WM [facility] Last Admin: 09/19/16 08:54 Dose: 667 mg Carvedilol (Coreg) 6.25 mg PO DAILY [facility] Last Admin: 09/19/16 10:46 Dose: 6.25 mg Cholecalciferol (Vitamin D) 2,000 iu PO DAILY [facility] Last Admin: 09/19/16 10:45 Dose: 2,000 iu Doxycycline Hyclate (Doryx) 100 mg PO Q12 [facility] PRN Reason: Protocol Stop: 09/26/16 22:01 Last Admin: 09/19/16 10:45 Dose: 100 mg Escitalopram Oxalate (Lexapro) 10 mg PO DAILY [facility] Last Admin: 09/19/16 10:45 Dose: 10 mg Furosemide (Lasix) 40 mg PO DAILY [facility] Last Admin: 09/19/16 10:56 Dose: Not Given Gabapentin (Neurontin) 300 mg PO TID [facility] PRN Reason: Protocol Last Admin: 09/19/16 10:46 Dose: 300 mg Meropenem 1g/NS 100mL IVPB (Meropenem 1g/Ns 100ml Ivpb) 1 gm in 100 mls @ 100 mls/hr IVPB Q8 [facility] PRN Reason: Protocol Stop: 09/26/16 14:01 Last Admin: 09/19/16 05:10 Dose: 100 mls/hr Vancomycin HCl (Vancomycin 1gm) 1 gm in 250 mls @ 167 mls/hr IVPB Q12H [facility] PRN Reason: Protocol Stop: 09/26/16 10:46 Last Admin: 09/19/16 10:55 Dose: 167 mls/hr Levalbuterol HCl (Xopenex) 1.25 mg IH [id number] [facility] Last Admin: 09/19/16 07:55 Dose: 1.25 mg Montelukast Sodium (Singulair) 10 mg PO DAILY [facility] Last Admin: 09/19/16 10:56 Dose: Not Given Oxycodone HCl (Oxycodone Immediate Release Tab) 15 mg PO Q6 PRN PRN Reason: Pain, severe (8-10) Last Admin: 09/18/16 14:00 Dose: 15 mg Oxycodone HCl (Oxycontin Extended Release Tab) 20 mg PO Q12 [facility] Last Admin: 09/19/16 10:45 Dose: 20 mg Pantoprazole Sodium (Protonix Ec Tab) 40 mg PO 0600,1600 [facility] Last Admin: 09/19/16 05:10 Dose: 40 mg Ramipril (Altace) 1.25 mg PO DAILY [facility] Last Admin: 09/19/16 10:53 Dose: Not Given Spironolactone (Aldactone) 25 mg PO DAILY [facility] Last Admin: 09/19/16 10:56 Dose: Not Given Zolpidem Tartrate (Ambien) 5 mg PO HS PRN; Protocol PRN Reason: Insomnia Last Admin: 09/18/16 22:25 Dose: 5 mg - Labs Labs: 09/19/16 06:40 09/19/16 06:40 PT 10.3 Seconds (9.9-11.8) 09/17/16 09:00 INR 0.95 (0.93-1.08) 09/17/16 09:00 APTT 21.7 Seconds (23.7-30.8) L 09/17/16 09:00 - Constitutional Appears: Well, Non-toxic - Head Exam Head Exam: NORMAL INSPECTION - Eye Exam Pupil Exam: NORMAL ACCOMODATION - Neck Exam Neck Exam: absent: Thyromegaly - Respiratory Exam Respiratory Exam: NORMAL BREATHING PATTERN - Cardiovascular Exam Cardiovascular Exam: RRR, +S1, +S2 - Extremities Exam Extremities Exam: Normal Inspection - Neurological Exam Neurological Exam: Reflexes Normal Assessment and Plan - Assessment and Plan (Free Text) Assessment: COPD CARDIOMYOPATHY S/P DEFIBRILATOR/PPM DJD SPINE ASTHMATIC BRONCHITIS CAP Plan: CONTINUE ANTIBIOTICS AND DUONEBS F/UP ELECTROLYTES OOB TO CHAIR
[2016-09-19] MEDS: oxyCODONE 15 mg Immediate Release Tab PO PRN ×2 (14:29→20:18)
--- NOTE | 2016-09-19 15:02 | CP.PCM.PN ---
Subjective - Date & Time of Evaluation Date of Evaluation: 09/19/16 Time of Evaluation: 11:00 - Subjective Subjective: DOING WELL Objective - Vital Signs/Intake and Output Vital Signs (last 24 hours): Temp Pulse Resp BP Pulse Ox 98.9 F 76 20 119/61 93 L 09/19/16 08:15 09/19/16 08:15 09/19/16 08:15 09/19/16 08:15 09/19/16 08:15 Intake and Output: 09/19/16 09/19/16 06:59 18:59 Intake Total 500 Balance 500 - Medications Medications: Current Medications Amoxicillin/Clavulanate Potassium (Augmentin 875 Mg-125 Mg Tab) 1 tab PO Q12 [facility] PRN Reason: Protocol Stop: 09/26/16 22:01 Carvedilol (Coreg) 25 mg PO DAILY [facility] Doxycycline Hyclate (Doryx) 100 mg PO Q12 [facility] PRN Reason: Protocol Stop: 09/26/16 22:01 Last Admin: 09/19/16 10:45 Dose: 100 mg Escitalopram Oxalate (Lexapro) 10 mg PO DAILY [facility] Last Admin: 09/19/16 10:45 Dose: 10 mg Gabapentin (Neurontin) 300 mg PO TID [facility] PRN Reason: Protocol Last Admin: 09/19/16 14:29 Dose: 300 mg Levalbuterol HCl (Xopenex) 1.25 mg IH [id number] [facility] Last Admin: 09/19/16 14:44 Dose: 1.25 mg Oxycodone HCl (Oxycodone Immediate Release Tab) 15 mg PO Q6 PRN PRN Reason: Pain, severe (8-10) Last Admin: 09/19/16 14:29 Dose: 15 mg Oxycodone HCl (Oxycontin Extended Release Tab) 20 mg PO Q12 [facility] Last Admin: 09/19/16 10:45 Dose: 20 mg Pantoprazole Sodium (Protonix Ec Tab) 40 mg PO DAILY [facility] Ramipril (Altace) 1.25 mg PO DAILY [facility] Last Admin: 09/19/16 10:53 Dose: Not Given Zolpidem Tartrate (Ambien) 5 mg PO HS PRN; Protocol PRN Reason: Insomnia Last Admin: 09/18/16 22:25 Dose: 5 mg - Labs Labs: 09/19/16 06:40 09/19/16 06:40 PT 10.3 Seconds (9.9-11.8) 09/17/16 09:00 INR 0.95 (0.93-1.08) 09/17/16 09:00 APTT 21.7 Seconds (23.7-30.8) L 09/17/16 09:00 - Constitutional Appears: Well - Head Exam Head Exam: ATRAUMATIC, NORMAL INSPECTION, NORMOCEPHALIC - Eye Exam Eye Exam: EOMI, Normal appearance, PERRL Pupil Exam: NORMAL ACCOMODATION, PERRL - ENT Exam ENT Exam: Mucous Membranes Moist, Normal Exam - Neck Exam Neck Exam: Full ROM, Normal Inspection. absent: Lymphadenopathy - Respiratory Exam Respiratory Exam: Clear to Ausculation Bilateral, NORMAL BREATHING PATTERN - Cardiovascular Exam Cardiovascular Exam: REGULAR RHYTHM, +S1, +S2. absent: Murmur - GI/Abdominal Exam GI & Abdominal Exam: Soft, Normal Bowel Sounds. absent: Tenderness - Rectal Exam Rectal Exam: NORMAL INSPECTION - Exam Exam: Circumcision, NORMAL INSPECTION External exam: NORMAL EXTERNAL EXAM Speculum exam: NORMAL SPECULUM EXAM Bimanual exam: NORMAL BIMANUAL EXAM - Extremities Exam Extremities Exam: Full ROM, Normal Capillary Refill, Normal Inspection. absent : Joint Swelling, Pedal Edema - Back Exam Back Exam: NORMAL INSPECTION - Neurological Exam Neurological Exam: Alert, Awake, CN II-XII Intact, Normal Gait, Oriented x3 - Psychiatric Exam Psychiatric exam: Normal Affect, Normal Mood - Skin Skin Exam: Dry, Intact, Normal Color, Warm Assessment and Plan (1) Sepsis Status: Acute (2) Left lower lobe pneumonia Status: Acute (3) Left lower lobe pneumonia Status: Acute (4) Bandemia Status: Acute - Assessment and Plan (Free Text) Plan: PO ABX CULT NEG DOXY /AUGM F/U IMAGING 1-2 WKS
[2016-09-19 20:04] VITALS: O2SAT 95
[2016-09-19] MEDS: Amoxicillin-Clav 875-125 mg Tab PO SCH (22:38)
[2016-09-20] MEDS: oxyCODONE 15 mg Immediate Release Tab PO PRN (05:54)
[2016-09-20] MEDS: Levalbuterol 1.25 MG/3 ML Inhal Soln UD IH SCH ×2 (07:42→13:29)
[2016-09-20 07:52] LABS: MEAN CELL VOLUME 99.4 fL (80.0-105.0); MEAN CORPUSCULAR HEMOGLOBIN 32.3 pg (25.0-35.0); MEAN CORPUSCULAR HGB CONC 32.5 g/dl (31.0-37.0); MEAN PLATELET VOLUME 10.4 fl (7.0-11.0); RED CELL DISTRIBUTION WIDTH 12.7 % (11.5-14.5); WHITE BLOOD COUNT 4.9 10^3/ul (4.5-11.0)
[2016-09-20 08:03] LABS: ALB/GLOB RATIO 1.1 (1.1-1.8); ALKALINE PHOSPHATASE 68 U/L (38-133); ALT/SGPT 28 U/L (7-56); AST/SGOT 22 U/L (15-39); BILIRUBIN,TOTAL 0.4 mg/dL (0.2-1.3); BLOOD UREA NITROGEN 19 mg/dL (7-21); CARBON DIOXIDE 30 mmol/L (21-33); CHLORIDE 102 mmol/L (95-110); GFR AFRICAN-AMERICAN > 60; GLUCOSE,RANDOM 89 mg/dL (70-110); POTASSIUM 3.9 mmol/L (3.6-5.0); SODIUM 138 mmol/L (132-148)
--- NOTE | 2016-09-20 08:21 | CP.PCM.PN ---
Subjective - Date & Time of Evaluation Date of Evaluation: 09/20/16 Time of Evaluation: 08:00 - Subjective Subjective: DOING BETTER Objective - Vital Signs/Intake and Output Vital Signs (last 24 hours): Temp Pulse Resp BP Pulse Ox 98.9 F 65 20 130/65 95 09/19/16 16:00 09/19/16 16:00 09/19/16 16:00 09/19/16 16:00 09/19/16 16:00 Intake and Output: 09/20/16 09/20/16 06:59 18:59 Intake Total 360 Balance 360 - Medications Medications: Current Medications Amoxicillin/Clavulanate Potassium (Augmentin 875 Mg-125 Mg Tab) 1 tab PO Q12 [facility] PRN Reason: Protocol Stop: 09/26/16 22:01 Last Admin: 09/19/16 22:38 Dose: 1 tab Carvedilol (Coreg) 25 mg PO DAILY [facility] Doxycycline Hyclate (Doryx) 100 mg PO Q12 [facility] PRN Reason: Protocol Stop: 09/26/16 22:01 Last Admin: 09/19/16 22:39 Dose: 100 mg Escitalopram Oxalate (Lexapro) 10 mg PO DAILY [facility] Last Admin: 09/19/16 10:45 Dose: 10 mg Gabapentin (Neurontin) 300 mg PO TID [facility] PRN Reason: Protocol Last Admin: 09/19/16 18:17 Dose: 300 mg Levalbuterol HCl (Xopenex) 1.25 mg IH [id number] [facility] Last Admin: 09/20/16 07:42 Dose: 1.25 mg Oxycodone HCl (Oxycodone Immediate Release Tab) 15 mg PO Q6 PRN PRN Reason: Pain, severe (8-10) Last Admin: 09/20/16 05:54 Dose: 15 mg Oxycodone HCl (Oxycontin Extended Release Tab) 20 mg PO Q12 [facility] Last Admin: 09/19/16 22:39 Dose: 20 mg Pantoprazole Sodium (Protonix Ec Tab) 40 mg PO DAILY [facility] Ramipril (Altace) 1.25 mg PO DAILY [facility] Last Admin: 09/19/16 10:53 Dose: Not Given Zolpidem Tartrate (Ambien) 5 mg PO HS PRN; Protocol PRN Reason: Insomnia Last Admin: 09/19/16 22:39 Dose: 5 mg - Labs Labs: 09/20/16 07:00 09/20/16 07:00 PT 10.3 Seconds (9.9-11.8) 09/17/16 09:00 INR 0.95 (0.93-1.08) 09/17/16 09:00 APTT 21.7 Seconds (23.7-30.8) L 09/17/16 09:00 - Constitutional Appears: Well - Head Exam Head Exam: ATRAUMATIC, NORMAL INSPECTION, NORMOCEPHALIC - Eye Exam Eye Exam: EOMI, Normal appearance, PERRL Pupil Exam: NORMAL ACCOMODATION, PERRL - ENT Exam ENT Exam: Mucous Membranes Moist, Normal Exam - Neck Exam Neck Exam: Full ROM, Normal Inspection. absent: Lymphadenopathy - Respiratory Exam Respiratory Exam: Clear to Ausculation Bilateral, NORMAL BREATHING PATTERN - Cardiovascular Exam Cardiovascular Exam: REGULAR RHYTHM, +S1, +S2. absent: Murmur - GI/Abdominal Exam GI & Abdominal Exam: Soft, Normal Bowel Sounds. absent: Tenderness - Rectal Exam Rectal Exam: NORMAL INSPECTION - Exam Exam: Circumcision, NORMAL INSPECTION External exam: NORMAL EXTERNAL EXAM Speculum exam: NORMAL SPECULUM EXAM Bimanual exam: NORMAL BIMANUAL EXAM - Extremities Exam Extremities Exam: Full ROM, Normal Capillary Refill, Normal Inspection. absent : Joint Swelling, Pedal Edema - Back Exam Back Exam: NORMAL INSPECTION - Neurological Exam Neurological Exam: Alert, Awake, CN II-XII Intact, Normal Gait, Oriented x3 - Psychiatric Exam Psychiatric exam: Normal Affect, Normal Mood - Skin Skin Exam: Dry, Intact, Normal Color, Warm Assessment and Plan (1) Sepsis Status: Acute (2) Left lower lobe pneumonia Status: Acute (3) Left lower lobe pneumonia Status: Acute (4) Bandemia Status: Acute - Assessment and Plan (Free Text) Plan: AUGM/DOXY F/UP IMAGING IN1-2 WEEKS
[2016-09-20] MEDS: Amoxicillin-Clav 875-125 mg Tab PO SCH (09:09)
[2016-09-20] MEDS: oxyCODONE 20 mg ER Tab (oxyCONTIN) PO SCH (09:11)
[2016-09-20 09:15] VITALS: BP 112/67; PULSE 78
--- NOTE | 2016-09-20 09:17 | CP.PCM.PN ---
Subjective - Date & Time of Evaluation Date of Evaluation: 09/20/16 Time of Evaluation: 09:00 - Subjective Subjective: feels better no Chest pain, no SOB Objective - Vital Signs/Intake and Output Vital Signs (last 24 hours): Temp Pulse Resp BP Pulse Ox 98.9 F 65 20 130/65 95 09/19/16 16:00 09/19/16 16:00 09/19/16 16:00 09/19/16 16:00 09/19/16 16:00 Intake and Output: 09/20/16 09/20/16 06:59 18:59 Intake Total 360 Balance 360 - Medications Medications: Current Medications Amoxicillin/Clavulanate Potassium (Augmentin 875 Mg-125 Mg Tab) 1 tab PO Q12 ZARA PRN Reason: Protocol Stop: 09/26/16 22:01 Last Admin: 09/19/16 22:38 Dose: 1 tab Carvedilol (Coreg) 25 mg PO DAILY [facility] Doxycycline Hyclate (Doryx) 100 mg PO Q12 ZRAA PRN Reason: Protocol Stop: 09/26/16 22:01 Last Admin: 09/19/16 22:39 Dose: 100 mg Escitalopram Oxalate (Lexapro) 10 mg PO DAILY [facility] Last Admin: 09/19/16 10:45 Dose: 10 mg Gabapentin (Neurontin) 300 mg PO TID ZARA PRN Reason: Protocol Last Admin: 09/19/16 18:17 Dose: 300 mg Levalbuterol HCl (Xopenex) 1.25 mg IH [id number] [facility] Last Admin: 09/20/16 07:42 Dose: 1.25 mg Oxycodone HCl (Oxycodone Immediate Release Tab) 15 mg PO Q6 PRN PRN Reason: Pain, severe (8-10) Last Admin: 09/20/16 05:54 Dose: 15 mg Oxycodone HCl (Oxycontin Extended Release Tab) 20 mg PO Q12 [facility] Last Admin: 09/19/16 22:39 Dose: 20 mg Pantoprazole Sodium (Protonix Ec Tab) 40 mg PO DAILY [facility] Ramipril (Altace) 1.25 mg PO DAILY [facility] Last Admin: 09/19/16 10:53 Dose: Not Given Zolpidem Tartrate (Ambien) 5 mg PO HS PRN; Protocol PRN Reason: Insomnia Last Admin: 09/19/16 22:39 Dose: 5 mg - Labs Labs: 09/20/16 07:00 09/20/16 07:00 PT 10.3 Seconds (9.9-11.8) 09/17/16 09:00 INR 0.95 (0.93-1.08) 09/17/16 09:00 APTT 21.7 Seconds (23.7-30.8) L 09/17/16 09:00 - Constitutional Appears: Well - Head Exam Head Exam: ATRAUMATIC - Eye Exam Eye Exam: Conjunctival injection - ENT Exam ENT Exam: Mucous Membranes Dry - Neck Exam Neck Exam: Full ROM - Respiratory Exam Respiratory Exam: Accessory Muscle Use Assessment and Plan - Assessment and Plan (Free Text) Assessment: 60 year old femal with pMhx of Non Ischemic CMp S/p AICD ..20 years S/p Gen change 04/2016 ... being f/u by Dr. isela markham ad,itted with Sepsis overwhelming sepsis .. Neutropenia Pneumonia chest pain... Non cardiac ..secondary to pneumonia S/p cardiac cath 2-3 years ago ...non Obst CAd. Plan: Antibiotics continue base line Meds Dc planning upon Dc pt will f?u her car spotter and will get Stress salazar.
[2016-09-20] MEDS ORDERED: Pantoprazole 40 mg EC Tab PO SCH (10:00)
[2016-09-20 10:23] VITALS: RESP 19; TEMP 98.1
[2016-09-20] MEDS ORDERED: Pneumococcal 23-Valent Vaccine IM ONE (12:50)
--- NOTE | 2016-09-23 21:48 | PQF CHF ---
09/23/16 Dr. Miller, CHF is documented in ED notes and consult. Please indicate type and severity, as listed below. Thank you. Clarification of your documentation is requested to better reflect the severity of illness and intensity of treatment of your patient. Indicators present [x] Diagnosis of CHF and/or history of CHF [x] BNP > 200 [] Imaging Finding of Pulmonary Edema /Pleural Effusions [] Fluid/Volume Overload [] Pitting edema []x Ejection Fraction < 40% (Indicative of Systolic Heart Failure) [] Ejection Fraction > 40% (Indicative of Diastolic Heart Failure) [] Dyspnea / Orthopenea / Paroxysmal Nocturnal Dyspnea [] Other: Location in the medical record that reflects the above clinical findings: [] Treatment Provided: [] PHYSICIAN'S RESPONSE Based on your medical judgment of the clinical indicators outlined above, are you treating this patient for a known or suspected: [] Acute CHF [] Systolic [] Diastolic [] Combined [] Chronic CHF [x] Systolic [] Diastolic [] Combined [x] Acute on Chronic CHF []Systolic [] Diastolic [] Combined [] CHF due hypertension [] Acute systolic []Chronic systolic [] Acute/ chronic systolic [] Other, please indicate: [] [] If Unable to Determine, please check the box, sign and date. Present On Admission (POA) Indicator: [] Present at the time of admission [] Not present at the time of admission [] Clinically Undetermined In responding to this query, please exercise your independent professional judgment. The fact that a question is asked does not imply that any particular answer is desired or expected. Thank you for your clarification on this documentation. If you have any questions please call:[ ] * Thank you, [ ] profile shaper operator JOSE
== END 2016-09-20 14:46 | disposition home or self-care (01) | DRG 871 ==
LOC: ED 08:25 → ERH 09:51 → 2RNO 13:03 → 3RNO 09-18 16:13
PROVIDERS: ADMIT Internal Medicine; ATTEND Internal Medicine
DX: A41.9 Sepsis, unspecified organism (principal); J18.9 Pneumonia, unspecified organism; I50.23 Acute on chronic systolic (congestive) heart failure; D70.9 Neutropenia, unspecified; I11.0 Hypertensive heart disease with heart failure; I42.9 Cardiomyopathy, unspecified; E11.40 Type 2 diabetes mellitus with diabetic neuropathy, unspecified; J44.0 Chronic obstructive pulmonary disease with (acute) lower respiratory infection; I25.10 Atherosclerotic heart disease of native coronary artery without angina pectoris; M47.9 Spondylosis, unspecified; Z79.899 Other long term (current) drug therapy; Z87.891 Personal history of nicotine dependence; Z90.710 Acquired absence of both cervix and uterus; Z95.0 Presence of cardiac pacemaker; Z95.810 Presence of automatic (implantable) cardiac defibrillator; Z98.84 Bariatric surgery status; J45.909 Unspecified asthma, uncomplicated; Z88.1 Allergy status to other antibiotic agents; Z91.040 Latex allergy status; Z91.048 Other nonmedicinal substance allergy status

== ENCOUNTER 2017-05-13 07:53 | Day surgery (SDC) | payer MEDICARE, MEDICAID ==
[2017-05-12 07:56] VITALS: BMI 23.3
[~2017-05-13 07:53] MED LIST: HYDROmorphone 1 mg/ml ISec IVP ONE
[2017-05-13] MEDS ORDERED: Etomidate 20 mg/10ml Inj IV ONE (09:47)
[2017-05-13] MEDS ORDERED: Propofol 10 mg/ml Inj (20 ML) ONE (09:47)
[2017-05-13] MEDS ORDERED: Rocuronium 10 mg/ml (5 ml) ONE (09:47)
[2017-05-13] MEDS ORDERED: Bupivacaine 0.5% Inj(30mL) ONE (09:50)
[2017-05-13] MEDS ORDERED: EPINEPHrine 1:1000 Nasal Sol(30mL) ONE (09:50)
[2017-05-13] MEDS ORDERED: Lidocaine 1% w Epi 1:100,000 Inj ONE (10:19)
[2017-05-13] MEDS ORDERED: Esmolol 100 mg/10ml Inj IV ONE (10:42)
[2017-05-13] MEDS ORDERED: Neostigmine Methylsulfate 3mg/3ml Syringe IV ONE (11:48)
[2017-05-13] MEDS ORDERED: HYDROmorphone 2 mg/ml ISec ONE (12:28)
[2017-05-13] MEDS ORDERED: HYDROmorphone 0.5 mg/0.5 ml ISec IVP STA (12:29)
--- NOTE | 2017-05-13 12:40 | PCM.SURG1 ---
Surgeon's Initial Post Op Note - Surgeon's Notes Surgeon: Jose Manuel Hankins MD Door Person: Kunal Nair PA-C Anesthesia Administered By: Dr. Jones Pre-Operative Diagnosis: Right shoulder rotator cuff tear, impingement Operative Findings: see full note Post-Operative Diagnosis: Right shoulder rotator cuff tear and labral tear Operation Performed: Right shoulder arthroscopic rotator cuff repair, labral repair, subacromial decompression Specimen/Specimens Removed: none Estimated Blood Loss: EBL {In ML}: 5 Blood Products Given: N/A Drains Used: No Drains Post-Op Condition: Fair Date of Surgery/Procedure: 05/13/17 Time of Surgery/Procedure: 10:15
[2017-05-13] MEDS ORDERED: HYDROmorphone 0.5 mg/0.5 ml ISec ONE ×2 (12:43→13:13)
[2017-05-13] MEDS: HYDROmorphone 0.5 mg/0.5 ml ISec IVP PRN ×2 (12:43→13:11)
[2017-05-13] MEDS ORDERED: Bupivacaine 0.25% Inj(30mL) ONE (12:48)
[2017-05-13 13:52] VITALS: RESP 18; TEMP 97.5
[2017-05-13 14:54] VITALS: BP 165/89; PULSE 71; O2SAT 94
--- NOTE | 2017-05-13 22:46 | OP ---
PROCEDURE DATE: 05/13/2017 PREOPERATIVE DIAGNOSIS: Right shoulder rotator cuff tear and impingement. POSTOPERATIVE DIAGNOSES: Right shoulder rotator cuff tear and impingement syndrome, and labral tear. PROCEDURES: Right shoulder arthroscopy with arthroscopic cuff repair, arthroscopic labral repair, and subacromial decompression. SURGEON: David Hankins MD CHIMNEY CONSTRUCTION SUPERVISOR: Dr. Hankins was assisted by Monae Pandey, the physician speech therapy assistant. Ms. Pandey was scrubbed and present throughout the entire case, and assisted in patient positioning, holding up the arthroscope during the repair as well as the wound closure. ANESTHESIA: General. COMPLICATIONS: None. ESTIMATED BLOOD LOSS: 5 mL. INDICATIONS FOR PROCEDURE: This is a 61-year-old female, who presented with longstanding right shoulder pain. Clinical examination was consistent with a positive Ramos sign with some pain and weakness with resisted abduction and forward flexion, pain through the impingement arc. CT arthrogram of the right shoulder was consistent with a full thickness tear of her right rotator cuff. Recommendations were for right shoulder arthroscopy with repair. The risks, benefits, and alternatives of the procedure were discussed with the patient and informed consent was obtained. OPERATIVE PROCEDURE: After the surgical site was signed and verified in the preoperative holding area, the patient was taken to the operating room and placed supine on the operating room table. After administration of general anesthesia, the patient received 2 g of Ancef IV. The patient was positioned in the lateral decubitus position with the right shoulder up towards the ceiling. Care was taken to make sure all bony prominences and nerves were well padded and protected. Axillary roll was placed in the left axilla and Venodyne boots were placed on bilateral lower extremities and the right upper extremity was prepped and draped in the usual sterile fashion. Bony landmarks were identified about the right shoulder and portal sites were injected with a total of 10 mL of 1% lidocaine with epinephrine. A posterior arthroscopy portal was established and the arthroscope was inserted into the glenohumeral joint. The chondral surface of the glenoid and humeral head were noted to have some grade I to grade II changes. The anterior rotator interval was identified, and under direct arthroscopic visualization, an anterior portal was established. The anterior labrum was probed, and the patient was noted to have a tear roughly from the biceps anchor to the 1:30 to 2 o'clock position. At this point, decision was made to repair the labrum and this was done by first debriding the footprint of the labrum and then inserting Olson and Nephew labral tape around labral tissue and inserting each of the sutures into knotless anchors. The anchors were impacted into place, firmly securing the labral tissue back down. The labrum was again probed and the biceps anchor was again probed, and was now noted to be stable. At this point, the subscapularis was identified and was noted to have some small amount of fraying, but no obvious full thickness tear was appreciated. The supraspinatus was noted to be completely torn. The tear appeared to be chronic and the articular side of the tear was debrided using a full radius shaver. The posterior and inferior labrum was noted to be intact. No loose bodies were appreciated. At this point, the arthroscope was inserted into the subacromial space through a lateral portal. Subacromial decompression was performed using a full radius shaver. This gave us excellent visualization of undersurface of the acromion as well as the rotator tear. At this point, the tear configuration was identified and decision was made to do tendon to bone repair using 2 double-loaded Olson and Nephew anchors. At this point, the footprint of the tear was debrided to bone and anchors were inserted in the footprint. At this point, the sutures were passed in a mattress-like fashion around the tendon tissue and then tied. This firmly secured the tendon back down onto the bone. Satisfied, the arm was taken through a range of motion and no evidence of any impingement was appreciated. At this point, all the instruments were removed and portal sites were closed using interrupted 2-0 Vicryl suture and 3-0 nylon. Sterile dressing was applied and the arm was removed from the traction device and placed in the abduction pillow sling. The patient was awakened from the procedure and taken to the recovery room in stable condition. David Hankins MD
== END 2017-05-13 15:30 | disposition home or self-care (01) ==
LOC: SDS 07:53
PROVIDERS: ATTEND Orthopaedic Surgery
DX: M75.101 Unspecified rotator cuff tear or rupture of right shoulder, not specified as traumatic (principal); G89.29 Other chronic pain; I11.0 Hypertensive heart disease with heart failure; J45.909 Unspecified asthma, uncomplicated; J43.9 Emphysema, unspecified; Z90.710 Acquired absence of both cervix and uterus; Z88.1 Allergy status to other antibiotic agents; Z91.040 Latex allergy status; Z91.048 Other nonmedicinal substance allergy status; S43.421A Sprain of right rotator cuff capsule, initial encounter
CPT/HCPCS: 29826; 29827; J0690; J1170 ×3; J2405; J2704; J2710; J3010